=== PATIENT | male | born 1995 ===

== ENCOUNTER 2019-11-07 16:19 | Emergency (ER) | payer BC ==
[~2019-11-07] VITALS: Ht 182.9 cm; Wt 102.3 kg
[2019-11-07] MEDS ORDERED: ALBU18HF INH (18:04)
[2019-11-07 18:15] LABS: RAPID INFLUENZA A Negative (Negative); RAPID INFLUENZA B Negative (Negative)
--- NOTE | 2019-11-07 18:46 | NUR ---
PIV EST, PT AWARE OF PLAN FOR CTA. CALL LIGHT W/I REACH VSS, NAD NOTED. PT INSTRUCTED TO KEEP FACEMASK IN PLACE
[2019-11-07 19:01] LABS: BASOPHILS # (AUTO) 0.02 x10^3/uL (0-0.1); BASOPHILS % (AUTO) 0 % (0-1); EOSINOPHILS # (AUTO) 0.14 x10^3/uL (0-0.4); EOSINOPHILS % (AUTO) 2 % (1-7); LYMPHOCYTES # (AUTO) 1.78 x10^3/uL (1-3.4); LYMPHOCYTES % (AUTO) 28 % (22-44); MD NO; MEAN CORPUSCULAR HEMOGLOBIN 29.4 pg (27.5-34.5); MEAN CORPUSCULAR HGB CONC 33.8 g/dL (33.2-36.2); MEAN PLATELET VOLUME 8.8 fL (7.4-10.4); MONOCYTES # (AUTO) 0.45 x10^3/uL (0.2-0.8); MONOCYTES % (AUTO) 7 % (2-9); NEUTROPHILS # (AUTO) 3.98 x10^3/uL (1.8-6.8); NEUTROPHILS % (AUTO) 63 % (42-75); PLATELET COUNT 256 x10^3/uL (130-400); RED BLOOD COUNT 5.82 x10^6/uL (4.38-5.82); RED CELL DISTRIBUTION WIDTH 13.2 % (9.4-14.8)
[2019-11-07 19:10] LABS: ALBUMIN 4.3 g/dL (3.4-5.0); ANION GAP 8 mmol/L (5-15); CALCIUM 9.1 mg/dL (8.5-10.1); CHLORIDE 107 mmol/L (98-107); CREATININE 1.05 mg/dL (0.7-1.3)
--- NOTE | 2019-11-07 19:14 | NUR ---
REPORT OF PT FROM REBE[facility] POTTER AND ASSUMING CARE OF PT AT THIS TIME.
--- NOTE | 2019-11-07 20:05 | NUR ---
PT RESTING IN [facility] AT THIS TIME IN NEGATIVE ISOLATION. NADN. WILL CONTINUE TO MONITOR.
[2019-11-07] MEDS ORDERED: OMNIPAQUE 350 MG/ML, 75ML BOTTLE ONE (21:04)
--- NOTE | 2019-11-07 21:05 | NUR ---
PT BACK FROM CTA AT THIS TIME.
[2019-11-07 22:14] VITALS: BP 137/74
--- NOTE | 2019-11-07 22:42 | NUR ---
PT D/C WITH D/C SUMMARY AND SCRIPTS. PT D/C WITH MASK ON HIS FACE AND A NOTE FOR WORK. PT VERBALIZES UNDERSTANDING OF NEED TO ISOLATE AT HOME AND F/U INSTRUCTIONS. PT DENIES ANY OTHER NEEDS PERTAINING TO THIS VISIT.
== END 2019-11-07 22:45 | disposition home or self-care (01) ==
LOC: ED 22:35
DX: J20.8 Acute bronchitis due to other specified organisms (principal); Z20.828 Contact with and (suspected) exposure to other viral communicable diseases; M79.10 Myalgia, unspecified site
CPT/HCPCS: 36415; 71045; 71260; 80048; 82040; 85025; 87081; 87147; 87400; 87880; 99285; Q9967